=== PATIENT | female | born 1930 | race Caucasian/White ===

== ENCOUNTER 2017-02-14 18:15 | Inpatient (IN) | payer MEDICARE, BC ==
--- NOTE | 2017-02-14 18:49 | CT ---
CT BRAIN WITHOUT CONTRAST: 02/14/17 HISTORY: Left sided weakness and altered mental status. FINDINGS: There is a large area of decreased attenuation in the right MCA territory with mild mass effect on t he right lateral ventricles but no midline shift. No acute hemorrhage or abnormal extra-axial fluid collections are seen. The bilateral cisterns are patent. The bony calvarium is intact. IMPRESSION: Acute large right MCA infarction. Discussed over the telephone with ER physician, Dr. Kelechi Garcia at 6:40 p.m. POS: CYNTHIA
[2017-02-14 19:08] LABS: #Basophils 0.2 thou/uL (0.0-0.2); #Lymphocytes 0.4 thou/uL (1.20-3.40); #Monocytes 0.4 thou/uL (0.11-0.59); #Neutrophils 8.8 thou/uL (1.40-6.50); %Basophils 2.1 % (0.0-1.0); %Lymphocytes 3.8 % (21.0-51.0); Hematocrit 51.1 % (36.0-47.0); Mean Platelet Volume 7.6 fL (7.4-10.4); White Blood Cell (WBC) Count 9.7 thou/uL (4.8-10.8)
[2017-02-14 19:31] LABS: ALT (SGPT) 21 U/L (8-55); AST (SGOT) 31 U/L (5-34); Alkaline Phosphatase 55 U/L (40-150); Anion Gap 15 mmol/L (10-20); BUN (Urea Nitrogen) 20 mg/dL (9.8-20.1); Bilirubin, Total 1.8 mg/dL (0.2-1.2); Calc. Creatinine Clearance 0 mL/min (70-130); Calcium 9.8 mg/dL (7.8-10.44); Carbon Dioxide 27 mmol/L (23-31); Chloride 101 mmol/L (98-107); Estimated GFR-MDRD 61; Globulin 3.8 g/dL (2.4-3.5)
[2017-02-14 19:35] LABS: Troponin I 0.019 ng/mL (< 0.028)
[2017-02-14 20:17] LABS: Mode RA; Modified Allen's Test POSITIVE; Oxyhemoglobin 94.2 % (94.0-97.0); Sodium 139 mmol/L (135-148); Vent NO
[2017-02-14] MEDS ORDERED: Ondansetron HCl/PF 4 MG/2 ML Vial IVP PRN (22:38)
[2017-02-14] MEDS ORDERED: Ondansetron ODT 4 MG TAB SL PRN (22:38)
--- NOTE | 2017-02-14 23:29 | PDOC.EVN ---
Event Note - Event Note Event Note: [id number] h&P DICTATED 1. Acute CVA 2. HTN PLAN: SEE ORDERS
[2017-02-14 23:42] LABS: Bilirubin Negative (Negative); Blood, Urine Trace (Negative); Glucose, Urine (Dipstick) Negative (Negative); Ketone, Urine 15 mg/dL (Negative); Nitrite Negative (Negative); Protein, Urine (Dipstick) > or equal to 300 mg/dL (Neg-Trace); Urobilinogen 0.2 mg/dL (0.2-1.0)
[2017-02-14 23:53] LABS: Bacteria/HPF None Seen HPF (None Seen); Hyaline Casts/LPF 0-3 HYALINE CAST LPF (0-3 Hyaline); Squamous Epithelial 0-3 HPF (0-3); WBC/HPF 0-3 HPF (0-3)
[2017-02-15] MEDS ORDERED: Aspirin 300 MG Suppository PR SCH ×2 (00:15→09:00)
[2017-02-15] MEDS: Dextrose 5 %-0.45 % NaCl 1,000 ML IV SCH ×2 (00:22→05:55)
[2017-02-15] MEDS: Sodium Chloride 0.9% 1,000 ML IV SCH ×2 (00:25→17:41)
--- NOTE | 2017-02-15 08:05 | HP ---
DATE OF ADMISSION: 02/14/2017 CHIEF COMPLAINT: Unresponsive. HISTORY OF PRESENT ILLNESS: Patient is an 86-year-old female with past medical history of hypertension, atrial fibrillation, lives at home, was brought to the hospital because of lethargy and left-sided weakness. The patient was last seen normal yesterday evening around 3 to 4 p.m. Patient's caregiver went to check on the patient this morning. The patient did not open the door, so she went to check later in the afternoon and the patient would not open the door, so EMS went in to the house. Upon EMS arrival, the patient was lethargic, but arousable and with some dysarthria/aphasia. The patient has weakness on the left side, so patient was brought to the ER. Patient had a CT of the head done , which showed acute stroke, so the patient was admitted to the IMU. I could not able to get much history from the patient as the patient is lethargic, able to follow some commands, but appears lethargic. PAST MEDICAL HISTORY: As per HPI. PAST SURGICAL HISTORY: Hysterectomy. FAMILY HISTORY: Denies any heart problems. MEDICATIONS: Reviewed. SOCIAL HISTORY: No smoking, no alcohol, no drugs. REVIEW OF SYSTEMS: None available from the patient. Patient's family is at the bedside. PHYSICAL EXAMINATION: VITAL SIGNS: At the time of H and P performed, blood pressure is 145/73, heart rate 55, respiratory rate 18. GENERAL APPEARANCE: The patient appears tired, lethargic. HEENT: Pupils are sluggish to react. Tongue appears dry. Teeth, poor dentition. NECK: Supple, no JVD. CARDIOVASCULAR SYSTEM: S1 and S2 present, irregular, juan, no murmurs, no rubs , no gallops. RESPIRATORY SYSTEM: Diminished breath sounds present. No wheezing. No rhonchi. Poor respiratory effort. GASTROINTESTINAL: Abdomen is soft, nontender, no guarding, no organomegaly, no masses felt. MUSCULOSKELETAL: No edema. CRANIAL NERVE SYSTEM: Able to do hand grasp on the right upper extremity, no movement seen on the left upper and left lower extremity. Able to see tongue, positive for klwoszaj-at-rykovk aphasia. Positive for dysarthria also. PSYCHIATRIC: Mood lethargic. LABORATORY DATA: At the time of H and P performed, white count 9.7, hemoglobin 16.4, platelet count is 153,000. PH is 7.45, pCO2 of 37, pO2 is 81. BMP showed sodium 139, potassium 4.1, chloride 101, CO2 of 27, BUN of 20, creatinine 0.88, glucose 128, CK 433, CK-MB 14, troponin 0.019. EKG, positive atrial fibrillation. ASSESSMENT AND PLAN: The patient is an 86-year-old female: 1. Acute cerebrovascular accident. CT of the head positive for acute large right MCA distribution. Plan to consult PT, OT, speech therapy, and Neurology. Plan to monitor the patient closely. Plan to keep patient n.p.o. 2. Hypertension. We will keep blood pressure elevated. We will titrate unless blood pressure greater than 200 3. History of atrial fibrillation, hold anticoagulation. As patient is currently n.p.o., we will wait for Neuro input. We will consult Cardiology also for further recommendations as patient is on Eliquis and had stroke. Get further recommendations about switching to a different anticoagulation. The case was discussed in detail with the patient's son and nurse also. DAVID
[2017-02-15] MEDS ORDERED: Heparin 5,000 UNITS/ML VIAL SC SCH (09:00)
[2017-02-15] MEDS ORDERED: FLU VACC TS2017-18 (>65YR) 0.5 ML SYRINGE IM ONE (09:00)
--- NOTE | 2017-02-15 09:08 | ULT ---
ULTRASOUND CAROTID DOPPLER: History Altered mental status, left-sided weakness. COMPARISON: None. TECHNIQUE: Real-time, escoto scale, color Doppler, and spectral analysis of the bilateral extracranial carotid ar teries and vertebral arteries was performed. FINDINGS: No elevated peak systolic velocity to suggest hemodynamically significant stenosis. There is antegr franck flow within both vertebral arteries. Mild atherosclerotic plaque of common carotid arteries bilaterally. Right ICA/CCA ratio is 1.12 and on the left the ICA/CCA ratio is 0.73. IMPRESSION: No hemodynamically significant stenosis. POS: CYNTHIA
--- NOTE | 2017-02-15 15:35 | MRI ---
MRI BRAIN WITHOUT IV CONTRAST: Date: 02-15-17 History: Left sided weakness and altered mental status. Comparison: 02-14-17 FINDINGS: As noted on the recent CT scan examination, there is a large area of restricted diffusion in the rig ht middle cerebral artery distribution consistent with large right MCA distribution and acute infarc tion. This does result in mass effect on the cerebral sulci as well as mass effect on the anterior h orn as well as body of the right lateral ventricle. There is no hydrocephalus. There is an area of decreased signal intensity seen within the right basal ganglia as well as in the right jaeger radiata at the level of the right lateral ventricle suggesting areas of hemorrhagic tr ansformation of this area of infarction. There is approximately 3 mm of shift of the midline structu res from right to left. There is significant motion on provided multiple sequences which degrades image quality. Grossly appropriate flow voids are demonstrated at the base of the brain. However, there is slight d iminished attenuation seen within the distal aspect of the M1 segment of the right middle cerebral a rtery which could be related to slice selection or possibly related to partial thrombosis or sluggis h flow within the right middle cerebral artery. This cannot be further evaluated on this exam. There is evidence of prior lens replacement surgery. Paranasal sinuses and skull base have a normal appearance. IMPRESSION: 1. Large acute right MCA distribution infarction with areas of hemorrhagic transformation. 2. Mass effect right cerebral hemisphere as well as slight shift of the midline structures to the le ft measuring 3 mm. 3. Slight increased density involving the mid and distal portion of the M1 segment of the right midd le cerebral artery flow void which could be related to either sluggish flow or partial occlusion of the right middle cerebral artery. This cannot be further evaluated on this exam. Due to significant patient motion, MRA would probably be nondiagnostic. POS: CYNTHIA
--- NOTE | 2017-02-15 16:31 | PDOC.PN ---
- Subjective Encounter Start Date: 02/15/17 Encounter Start Time: 09:00 -: non-verbal Pt seen for followup re: ischemic cva. Pt nonverbal, unable to provide ROS. - Objective MAR Reviewed: Yes Vital Signs & Weight: Vital Signs (12 hours) Temp Pulse Resp BP BP BP Pulse Ox 02/15/17 15:53 98.8 F 60 16 156/53 H 94 L 02/15/17 11:17 98.8 F 59 L 16 133/71 98 02/15/17 09:00 150/62 H 135/65 02/15/17 08:00 99.2 F 83 18 100 02/15/17 07:35 99.2 F 83 18 140/85 94 L Pulse Ox Pulse Ox 02/15/17 15:53 02/15/17 11:17 02/15/17 09:00 97 98 02/15/17 08:00 02/15/17 07:35 Weight Admit Weight 126 lb 8 oz Weight 126 lb 8 oz I&O: 02/14/17 02/15/17 02/16/17 06:59 06:59 06:59 Intake Total 421 Output Total 320 Balance 101 Result Diagrams: 02/14/17 19:00 02/14/17 19:00 EKG Reviewed by me: Yes (Tele: aMonica dey with slow ventricular response) Phys Exam - Physical Examination Constitutional: NAD HEENT: moist MMs, oral pharynx no lesions Respiratory: no wheezing, no rales, no rhonchi, clear to auscultation bilateral Cardiovascular: no rub, irregular S1, S2, irrg, juan Gastrointestinal: soft, non-tender, no distention, positive bowel sounds Musculoskeletal: no edema, pulses present Power 0/5 LLE and LUE, 4+/5 RUE and RLE Psychiatric: normal affect Skin: no rash, normal turgor, cap refill <2 seconds Dx/Plan (1) Idiopathic ischemic cerebrovascular accident (CVA) in adult Code(s): I63.9 - CEREBRAL INFARCTION, UNSPECIFIED Status: Acute (2) Atrial fibrillation Code(s): I48.91 - UNSPECIFIED ATRIAL FIBRILLATION Status: Chronic (3) HTN (hypertension) Code(s): I10 - ESSENTIAL (PRIMARY) HYPERTENSION Status: Chronic (4) Hypothyroidism Code(s): E03.9 - HYPOTHYROIDISM, UNSPECIFIED Status: Chronic - Plan plan discussed w/ family, PT/OT, out of bed/ambulate * . Await 2D echo, carotid dopplers, MRI brain, neurology consult. Discussed with son, updated him. Continue synthroid when pt is able to take oral medications. Monitor vital signs and titrate antihypertensives as needed. Review of Systems - Medications/Allergies Allergies/Adverse Reactions: Allergies Allergy/AdvReac Type Severity Reaction Status Date / Time rosuvastatin calcium Allergy Verified 08/18/14 15:31 [From Crestor] Medications: Current Medications Aspirin (Aspirin) 300 mg [place] DAILY KARLENE Last Admin: 02/15/17 10:05 Dose: 300 mg Heparin Sodium (Porcine) (Heparin) 5,000 units SC Q12HR KARLENE Last Admin: 02/15/17 10:05 Dose: 5,000 units Sodium Chloride (Normal Saline 0.9%) 1,000 mls @ 75 mls/hr IV .[id number] [facility]ARLENE Last Admin: 02/15/17 00:25 Dose: 1,000 mls Levothyroxine Sodium (Synthroid) 25 mcg IVP 0600 [facility]
--- NOTE | 2017-02-15 17:14 | PDOC.EVN ---
Event Note - Event Note Event Note: MRI report noted. Discussed with family. Explanied to them concern re; hemorrhagic transfusion. Pt poor surgical candidate, per neurosurgery. If LOC declines, will try mannitol. Discussed code status. Both sons (only children, spouse ) are in agreement with DNR code status. Will consult palliative care. Prognosis poor. Stop heparin, aspirin.
[2017-02-16] MEDS: Sodium Chloride 0.9% 1,000 ML IV SCH (04:32)
--- NOTE | 2017-02-16 09:06 | CON ---
DATE OF CONSULTATION: 02/15/2017 REFERRING PROVIDER: Dr. Blake Gaitan. REASON FOR CONSULTATION: Left hemiparesis, dysarthria. HISTORY OF PRESENT ILLNESS: Ms. Velasquez is a pleasant 86-year-old female, who has been cons ulted for evaluation of the left-sided weakness and dysarthria. History is obtained from patient's sons, who were present at bedside. According to son, the patient has a history of atrial fibrillati on. She is on Eliquis for anticoagulation therapy. She had a tooth extraction procedure scheduled, for which Eliquis was held for 12 hours. She was last seen normal for more than 24 hours. Around 4:00 p.m., someone had gone to check on her, she did not respond, and as they were concerned, the po lice were called into to open the house and found her not able to move her left side and having a sl urred speech. Her being, last time, seen normal was 24 hours ago. PAST MEDICAL HISTORY: Significant for hypertension and atrial fibrillation. PAST SURGICAL HISTORY: Significant for hysterectomy and recent tooth extraction. FAMILY HISTORY: Noncontributory. CURRENT MEDICATIONS: Please review MAR. ALLERGIES: Included ROSUVASTATIN. REVIEW OF SYSTEMS: Unable to perform. PHYSICAL EXAMINATION: VITAL SIGNS: Blood pressure 157/82, pulse of 61, temperature of 99, respirations of 18, O2 sats of 98% on room air. GENERAL: A well-developed, well-nourished female resting in bed, in no apparent distress. RESPIRATORY: Clear to auscultation bilaterally. CARDIOVASCULAR: Regular rate and rhythm. NEUROLOGIC: Mental status: The patient is obtunded. She does wake up to verbal stimuli, but falls back asleep. Speech and language: Severely dysarthric speech. Cranial nerves: Pupils are 3 mm a nd reactive. There is a right gaze deviation with left hemineglect, left facial droop noted. Motor exam showed flaccid left upper and left lower extremity. She has a good hand information specialist on the right upp er extremity and she moves right upper and right lower extremities spontaneously. Sensory: She zayas s not withdraw to pain on the left upper and left lower extremity. Gait and Romberg coordination co uld not be tested. LABORATORY DATA: Labs are reviewed, which included CBC, CMP, lipid profile, and urinalysis, which i s significant for CK-MB of 14 and CPK of 433, otherwise unremarkable. IMAGING STUDIES: MRI brain without contrast was reviewed, which showed large right MCA distribution ischemic infarct with mild edema and right to left midline shift was 3 mm. IMPRESSION: 1. Large right middle cerebral artery distribution ischemic infarct. 2. Atrial fibrillation. 3. Left hemiparesis, due to #1. ASSESSMENT AND PLAN: Ms. Velasquez is a pleasant 86-year-old female who presented with an acu te onset of left hemiparesis and dysarthria. She is found to have large right middle cerebral arter y distribution ischemic infarct. I have discussed the findings of the MRI with her 2 sons. I have explained that the prognosis is poor. I have also explained that there is a risk for worsening cere bral edema over the next 48-72 hours. I have explained to them that due to the very large area of t he stroke, there is a concern that by placing her on any form of antiplatelet or anticoagulation the rapy it may increase the risk for bleeding and the current MRI already shows some hemorrhage within the stroke and thus we will be holding the anticoagulation therapy for now. I have spent more than 50% of the total visit time for discussion and counseling. Thank you for the consultation.
[2017-02-16] MEDS: Acetaminophen 325 MG TAB PO PRN (12:45)
--- NOTE | 2017-02-16 14:48 | PDOC.PN ---
- Subjective Encounter Start Date: 02/16/17 Encounter Start Time: 09:40 Pt seen for followup re: ischemic CVA. Answering questions appropriately. Denies chest pain, shortness of breath, fevers or chills. Reports R knee pain. - Objective Resuscitation Status: Resuscitation Status DNR:Do Not Resuscitate MAR Reviewed: Yes Vital Signs & Weight: Vital Signs (12 hours) Temp Pulse Pulse Pulse Pulse Pulse Resp 02/16/17 11:47 98.1 F 42 L 20 02/16/17 11:19 58 L 55 L 80 35 L 02/16/17 07:49 99.3 F 68 20 02/16/17 07:10 99.3 F 68 20 02/16/17 04:00 99.0 F 61 18 BP BP BP BP BP Pulse Ox Pulse Ox 02/16/17 11:47 155/68 H 95 02/16/17 11:19 142/90 H 145/77 H 145/78 H 155/68 H 100 02/16/17 07:49 99 02/16/17 07:10 116/87 100 02/16/17 04:00 157/92 H 98 Pulse Ox Pulse Ox Pulse Ox 02/16/17 11:47 02/16/17 11:19 100 100 100 02/16/17 07:49 02/16/17 07:10 02/16/17 04:00 Weight Admit Weight 126 lb 8 oz Weight 126 lb 8 oz I&O: 02/15/17 02/16/17 02/17/17 06:59 06:59 06:59 Intake Total 421 1525 Output Total 320 986 Balance 101 539 Result Diagrams: 02/14/17 19:00 02/14/17 19:00 EKG Reviewed by me: Yes (Tele: vishal dey) Phys Exam - Physical Examination Constitutional: NAD HEENT: moist MMs, oral pharynx no lesions Neck: supple Respiratory: no wheezing, no rales, no rhonchi, clear to auscultation bilateral Cardiovascular: no rub, irregular S1, S2, irreg, juan Gastrointestinal: soft, non-tender, no distention, positive bowel sounds Musculoskeletal: pulses present Power 0/0 LUE and LLE, 5/5 RUE and RLE; L tavia-neglect Psychiatric: normal affect Skin: no rash, normal turgor, cap refill <2 seconds Dx/Plan (1) Idiopathic ischemic cerebrovascular accident (CVA) in adult Code(s): I63.9 - CEREBRAL INFARCTION, UNSPECIFIED Status: Acute (2) Atrial fibrillation Code(s): I48.91 - UNSPECIFIED ATRIAL FIBRILLATION Status: Chronic (3) HTN (hypertension) Code(s): I10 - ESSENTIAL (PRIMARY) HYPERTENSION Status: Chronic (4) Hypothyroidism Code(s): E03.9 - HYPOTHYROIDISM, UNSPECIFIED Status: Chronic - Plan plan discussed w/ family, PT/OT, speech therapy, DVT proph w/SCDs * . Appreciate neurology input. Awaiting palliative care consult. No aspirin due to hemorrhagic transformation. Review of Systems - Review of Systems Constitutional: Weakness. negative: Fever, Chills, Sweats, Malaise Cardiovascular: negative: Chest Pain, Palpitations, Orthopnea, Paroxysmal Noc. Dyspnea, Edema, Light Headedness Gastrointestinal: negative: Nausea, Vomiting, Abdominal Pain, Diarrhea, Constipation, Melena, Hematochezia Skin: negative: Rash, Lesions, Mohamud, Bruising Neurological: Weakness, Change in Speech. negative: Numbness, Incoordination, Confusion, Seizures - Medications/Allergies Allergies/Adverse Reactions: Allergies Allergy/AdvReac Type Severity Reaction Status Date / Time rosuvastatin calcium Allergy Verified 08/18/14 15:31 [From Crestor] Medications: Current Medications Acetaminophen (Tylenol) 650 mg PO Q6H PRN PRN Reason: Headache/Fever or Pain Last Admin: 02/16/17 12:45 Dose: 650 mg Sodium Chloride (Normal Saline 0.9%) 1,000 mls @ 75 mls/hr IV .[id number] KARLENE Last Admin: 02/16/17 04:32 Dose: 1,000 mls Levothyroxine Sodium (Synthroid) 25 mcg IVP 0600 [facility]
[2017-02-17] MEDS: Sodium Chloride 0.9% 1,000 ML IV SCH ×2 (00:33→14:20)
[2017-02-17] MEDS: hydrALAZINE 20 MG/ML VIAL SLOW IVP PRN ×2 (00:33→16:44)
[2017-02-17] MEDS: Acetaminophen 325 MG TAB PO PRN (05:18)
--- NOTE | 2017-02-17 11:13 | PDOC.PN ---
- Subjective Encounter Start Date: 02/17/17 Encounter Start Time: 07:00 Pt seen for followup re: ischemic CVA. Able to speak, denies chest pain, shortness of breath, fevers or chills. - Objective Resuscitation Status: Resuscitation Status DNR:Do Not Resuscitate MAR Reviewed: Yes Vital Signs & Weight: Vital Signs (12 hours) Temp Pulse Resp BP BP Pulse Ox 02/17/17 08:00 97.2 F L 49 L 18 161/79 H 98 02/17/17 03:40 98.7 F 71 16 139/50 L 98 02/17/17 02:02 140/52 L 02/17/17 00:33 67 203/84 H 02/16/17 23:15 97.8 F 62 16 200/90 H 92 L Weight Admit Weight 126 lb 8 oz Weight 126 lb 8 oz I&O: 02/16/17 02/17/17 02/18/17 06:59 06:59 06:59 Intake Total 1525 1020 Output Total 986 4450 Balance 539 -3430 Result Diagrams: 02/14/17 19:00 02/14/17 19:00 EKG Reviewed by me: Yes (Tele: vishal dey) Phys Exam - Physical Examination Constitutional: NAD HEENT: moist MMs Neck: supple Respiratory: clear to auscultation bilateral Cardiovascular: irregular Gastrointestinal: soft, non-tender Musculoskeletal: pulses present L hemiplegia, L hemineglet Psychiatric: normal affect Skin: no rash Dx/Plan (1) Idiopathic ischemic cerebrovascular accident (CVA) in adult Code(s): I63.9 - CEREBRAL INFARCTION, UNSPECIFIED Status: Acute Comment: with hemorrhagic transformation (2) Atrial fibrillation Code(s): I48.91 - UNSPECIFIED ATRIAL FIBRILLATION Status: Chronic (3) HTN (hypertension) Code(s): I10 - ESSENTIAL (PRIMARY) HYPERTENSION Status: Chronic (4) Hypothyroidism Code(s): E03.9 - HYPOTHYROIDISM, UNSPECIFIED Status: Chronic - Plan plan discussed w/ family, PT/OT, speech therapy, DVT proph w/SCDs * . Working with therapy services. Needs discharge planning. No aspirin due to hemorrhagic transformation. Review of Systems - Review of Systems Constitutional: negative: Fever, Chills, Sweats, Weakness, Malaise Respiratory: negative: Cough, Dry, Shortness of Breath, Hemoptysis, SOB with Excertion, Pleuritic Pain, Sputum, Wheezing Cardiovascular: negative: Chest Pain, Palpitations, Orthopnea, Paroxysmal Noc. Dyspnea, Edema, Light Headedness - Medications/Allergies Allergies/Adverse Reactions: Allergies Allergy/AdvReac Type Severity Reaction Status Date / Time rosuvastatin calcium Allergy Verified 08/18/14 15:31 [From Crestor] Medications: Current Medications Acetaminophen (Tylenol) 650 mg PO Q6H PRN PRN Reason: Headache/Fever or Pain Last Admin: 02/17/17 05:18 Dose: 650 mg Hydralazine HCl (Apresoline) 5 mg SLOW IVP Q4H PRN PRN Reason: SBP GREATER THAN 160 Last Admin: 02/17/17 00:33 Dose: 5 mg Sodium Chloride (Normal Saline 0.9%) 1,000 mls @ 75 mls/hr IV .[id number] [facility]ARLENE Last Admin: 02/17/17 00:33 Dose: 1,000 mls Levothyroxine Sodium (Synthroid) 25 mcg IVP 0600 [facility] Sodium Chloride (Flush - Normal Saline) 10 ml IVF Q12HR KARLENE Last Admin: 02/17/17 07:24 Dose: Not Given Sodium Chloride (Flush - Normal Saline) 10 ml IVF PRN PRN PRN Reason: Saline Flush
[2017-02-18] MEDS: Acetaminophen 325 MG TAB PO PRN (00:23)
[2017-02-18] MEDS ORDERED: Levothyroxine Sodium 200 MCG VIAL IVP SCH (06:00)
[2017-02-18] MEDS ORDERED: Levothyroxine Sodium 100 MCG VIAL IVP SCH (06:00)
[2017-02-18] MEDS: Sodium Chloride 0.9% 1,000 ML IV SCH (09:10)
[2017-02-18] MEDS: Hydrochlorothiazide 25 MG TAB PO SCH (09:10)
--- NOTE | 2017-02-18 10:55 | PDOC.PN ---
- Subjective Encounter Start Date: 02/18/17 Encounter Start Time: 07:20 Pt seen for followup re: constipation. Sleepy but arousable, denies chest pain , shortness of breath or fevers. - Objective Resuscitation Status: Resuscitation Status DNR:Do Not Resuscitate MAR Reviewed: Yes Vital Signs & Weight: Vital Signs (12 hours) Temp Pulse Resp BP Pulse Ox 02/18/17 08:00 98.7 F 49 L 18 02/18/17 07:34 98.7 F 49 L 18 138/77 96 02/18/17 03:34 97.8 F 47 L 18 152/74 H 97 02/18/17 00:08 97.7 F 65 20 152/74 H 96 Weight Admit Weight 126 lb 8 oz Weight 129 lb 9.6 oz I&O: 02/17/17 02/18/17 02/19/17 06:59 06:59 06:59 Intake Total 1020 2114 120 Output Total 4450 Balance -3430 2114 120 Result Diagrams: 02/14/17 19:00 02/14/17 19:00 EKG Reviewed by me: Yes (Tele: vishal dey) Phys Exam - Physical Examination Constitutional: NAD HEENT: moist MMs Neck: supple Respiratory: clear to auscultation bilateral Cardiovascular: irregular Gastrointestinal: soft, non-tender Musculoskeletal: pulses present L hemiplegia, hemineglect Psychiatric: normal affect Skin: no rash Dx/Plan (1) Constipation Code(s): K59.00 - CONSTIPATION, UNSPECIFIED Status: Acute (2) Idiopathic ischemic cerebrovascular accident (CVA) in adult Code(s): I63.9 - CEREBRAL INFARCTION, UNSPECIFIED Status: Acute Comment: with hemorrhagic transformation (3) Atrial fibrillation Code(s): I48.91 - UNSPECIFIED ATRIAL FIBRILLATION Status: Chronic (4) HTN (hypertension) Code(s): I10 - ESSENTIAL (PRIMARY) HYPERTENSION Status: Chronic (5) Hypothyroidism Code(s): E03.9 - HYPOTHYROIDISM, UNSPECIFIED Status: Chronic - Plan PT/OT, out of bed/ambulate, DVT proph w/SCDs * . Start laxatives, stool softeners. No aspirin due to hemorrhagic transformation of stroke. Titrate antihypertensives PRN. Needs discharge planning. Review of Systems - Review of Systems Constitutional: negative: Fever, Chills, Sweats, Weakness, Malaise Respiratory: negative: Cough, Dry, Shortness of Breath, Hemoptysis, SOB with Excertion, Pleuritic Pain, Sputum, Wheezing Cardiovascular: negative: Chest Pain, Palpitations, Orthopnea, Paroxysmal Noc. Dyspnea, Edema, Light Headedness Gastrointestinal: Constipation Neurological: Weakness - Medications/Allergies Allergies/Adverse Reactions: Allergies Allergy/AdvReac Type Severity Reaction Status Date / Time rosuvastatin calcium Allergy Verified 08/18/14 15:31 [From Cresthi] Medications: Current Medications Acetaminophen (Tylenol) 650 mg PO Q6H PRN PRN Reason: Headache/Fever or Pain Last Admin: 02/18/17 00:23 Dose: 650 mg Hydralazine HCl (Apresoline) 5 mg SLOW IVP Q4H PRN PRN Reason: SBP GREATER THAN 160 Last Admin: 02/17/17 16:44 Dose: 5 mg Hydrochlorothiazide (Hydrochlorothiazide) 12.5 mg PO DAILY [facility] Last Admin: 02/18/17 09:10 Dose: 12.5 mg Sodium Chloride (Normal Saline 0.9%) 1,000 mls @ 75 mls/hr IV .[id number] [facility] Last Admin: 02/18/17 09:10 Dose: 1,000 mls Levothyroxine Sodium (Synthroid) 50 mcg PO 0600 [facility] Metoprolol Succinate (Toprol Xl) 50 mg PO DAILY [facility] Last Admin: 02/18/17 09:07 Dose: Not Given Olmesartan (Benicar) 20 mg PO DAILY [facility] Last Admin: 02/18/17 09:10 Dose: 20 mg Sodium Chloride (Flush - Normal Saline) 10 ml IVF Q12HR [facility] Last Admin: 02/18/17 09:07 Dose: Not Given Sodium Chloride (Flush - Normal Saline) 10 ml IVF PRN PRN PRN Reason: Saline Flush
[2017-02-18] MEDS ORDERED: Bisacodyl 5 MG TAB PO SCH (11:00)
[2017-02-18] MEDS ORDERED: Bisacodyl 5 MG TAB PO PRN (11:00)
[2017-02-18] MEDS: hydrALAZINE 20 MG/ML VIAL SLOW IVP PRN (16:24)
[2017-02-18] MEDS: Docusate 100 MG CAP PO SCH (21:01)
[2017-02-19] MEDS: hydrALAZINE 20 MG/ML VIAL SLOW IVP PRN (00:27)
[2017-02-19] MEDS: Sodium Chloride 0.9% 1,000 ML IV SCH ×2 (01:53→13:36)
[2017-02-19] MEDS: Levothyroxine Sodium 50 MCG TAB PO SCH (05:43)
[2017-02-19] MEDS: Docusate 100 MG CAP PO SCH ×2 (09:08→20:59)
[2017-02-19] MEDS: Hydrochlorothiazide 25 MG TAB PO SCH (09:08)
--- NOTE | 2017-02-19 09:23 | PDOC.PN ---
- Subjective Encounter Start Date: 02/19/17 Encounter Start Time: 07:00 Pt seen for followup re; ischemic cva. Answering questions, denies chest pain, shortness of breath, fevers or chills. - Objective Resuscitation Status: Resuscitation Status DNR:Do Not Resuscitate MAR Reviewed: Yes Vital Signs & Weight: Vital Signs (12 hours) Temp Pulse Resp BP Pulse Ox 02/19/17 07:34 97.6 F 52 L 20 156/74 H 99 02/19/17 04:00 98.1 F 71 14 141/78 H 96 02/19/17 00:27 63 02/19/17 00:05 189/81 H 02/18/17 23:47 98.6 F 63 14 189/81 H 94 L Weight Admit Weight 126 lb 8 oz Weight 129 lb 9.6 oz I&O: 02/18/17 02/19/17 02/20/17 06:59 06:59 06:59 Intake Total 2114 1700 Balance 2114 1700 Result Diagrams: 02/14/17 19:00 02/14/17 19:00 EKG Reviewed by me: Yes (Tele: vishal dey) Phys Exam - Physical Examination Constitutional: NAD HEENT: moist MMs Neck: supple Respiratory: clear to auscultation bilateral Cardiovascular: irregular Gastrointestinal: soft Musculoskeletal: pulses present L hemiplegia Psychiatric: normal affect Skin: no rash Dx/Plan (1) 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 No anticoagulation due to hemorrhagic transformation of stroke. Review of Systems - Review of Systems Constitutional: negative: Fever, Chills, Sweats, Weakness, Malaise Respiratory: negative: Cough, Dry, Shortness of Breath, Hemoptysis, SOB with Excertion, Pleuritic Pain, Sputum, Wheezing Cardiovascular: negative: Chest Pain, Palpitations, Orthopnea, Paroxysmal Noc. Dyspnea, Edema, Light Headedness - Medications/Allergies Allergies/Adverse Reactions: Allergies Allergy/AdvReac Type Severity Reaction Status Date / Time rosuvastatin calcium Allergy Verified 08/18/14 15:31 [From Crestor] Medications: Current Medications Acetaminophen (Tylenol) 650 mg PO Q6H PRN PRN Reason: Headache/Fever or Pain Last Admin: 02/18/17 00:23 Dose: 650 mg Bisacodyl (Dulcolax) 10 mg PO DAILYPRN PRN PRN Reason: Constipation Docusate Sodium (Colace) 100 mg PO BID [facility] Last Admin: 02/19/17 09:08 Dose: 100 mg Hydralazine HCl (Apresoline) 5 mg SLOW IVP Q4H PRN PRN Reason: SBP GREATER THAN 160 Last Admin: 02/19/17 00:27 Dose: 5 mg Hydrochlorothiazide (Hydrochlorothiazide) 12.5 mg PO DAILY [facility] Last Admin: 02/19/17 09:08 Dose: 12.5 mg Sodium Chloride (Normal Saline 0.9%) 1,000 mls @ 75 mls/hr IV .[id number] [facility] Last Admin: 02/19/17 01:53 Dose: 1,000 mls Levothyroxine Sodium (Synthroid) 50 mcg PO 0600 [facility] Last Admin: 02/19/17 05:43 Dose: 50 mcg Metoprolol Succinate (Toprol Xl) 50 mg PO DAILY [facility] Last Admin: 02/19/17 09:08 Dose: 50 mg Olmesartan (Benicar) 20 mg PO DAILY [facility] Last Admin: 02/19/17 09:08 Dose: 20 mg Sodium Chloride (Flush - Normal Saline) 10 ml IVF Q12HR [facility] Last Admin: 02/19/17 09:08 Dose: Not Given Sodium Chloride (Flush - Normal Saline) 10 ml IVF PRN PRN PRN Reason: Saline Flush
[2017-02-20] MEDS: Sodium Chloride 0.9% 1,000 ML IV SCH (03:12)
[2017-02-20] MEDS: Levothyroxine Sodium 50 MCG TAB PO SCH (05:05)
[2017-02-20] MEDS: Hydrochlorothiazide 25 MG TAB PO SCH (09:02)
[2017-02-20] MEDS: Docusate 100 MG CAP PO SCH ×2 (09:02→20:32)
--- NOTE | 2017-02-20 09:24 | PDOC.PN ---
- Subjective Encounter Start Date: 02/20/17 Encounter Start Time: 07:00 Pt seen for followup re: ischemic CVA. Says she feels well. Denies chest pain , shortness of breath. - Objective Resuscitation Status: Resuscitation Status DNR:Do Not Resuscitate MAR Reviewed: Yes Vital Signs & Weight: Vital Signs (12 hours) Temp Pulse Resp BP Pulse Ox 02/20/17 07:39 97.7 F 43 L 18 156/84 H 95 02/20/17 03:58 97.7 F 45 L 16 154/72 H 94 L 02/19/17 23:07 98.6 F 56 L 16 164/75 H 96 Weight Admit Weight 126 lb 8 oz Weight 129 lb 9.6 oz I&O: 02/19/17 02/20/17 02/21/17 06:59 06:59 06:59 Intake Total 1700 936 Balance 1700 936 Result Diagrams: 02/14/17 19:00 02/14/17 19:00 EKG Reviewed by me: Yes (Tele: vishal dey) Phys Exam - Physical Examination Constitutional: NAD HEENT: moist MMs Neck: supple Respiratory: clear to auscultation bilateral Cardiovascular: irregular Gastrointestinal: soft Musculoskeletal: pulses present L hemiplegia Psychiatric: normal affect Dx/Plan (1) 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 Pt awaiting decision re: rehab eval. Continue PT, OT. No aspirin or anticoagulation due to hemorrhagic transformation. Review of Systems - Review of Systems Constitutional: negative: Fever, Chills, Sweats, Weakness, Malaise Respiratory: negative: Cough, Dry, Shortness of Breath, Hemoptysis, SOB with Excertion, Pleuritic Pain, Sputum, Wheezing Cardiovascular: negative: Chest Pain, Palpitations, Orthopnea, Paroxysmal Noc. Dyspnea, Edema, Light Headedness - Medications/Allergies Allergies/Adverse Reactions: Allergies Allergy/AdvReac Type Severity Reaction Status Date / Time rosuvastatin calcium Allergy Verified 08/18/14 15:31 [From Crestor] Medications: Current Medications Acetaminophen (Tylenol) 650 mg PO Q6H PRN PRN Reason: Headache/Fever or Pain Last Admin: 02/18/17 00:23 Dose: 650 mg Bisacodyl (Dulcolax) 10 mg PO DAILYPRN PRN PRN Reason: Constipation Docusate Sodium (Colace) 100 mg PO BID [facility] Last Admin: 02/20/17 09:02 Dose: 100 mg Hydralazine HCl (Apresoline) 5 mg SLOW IVP Q4H PRN PRN Reason: SBP GREATER THAN 160 Last Admin: 02/19/17 00:27 Dose: 5 mg Hydrochlorothiazide (Hydrochlorothiazide) 12.5 mg PO DAILY [facility] Last Admin: 02/20/17 09:02 Dose: 12.5 mg Sodium Chloride (Normal Saline 0.9%) 1,000 mls @ 75 mls/hr IV .[id number] [facility] Last Admin: 02/20/17 03:12 Dose: 1,000 mls Levothyroxine Sodium (Synthroid) 50 mcg PO 0600 [facility] Last Admin: 02/20/17 05:05 Dose: 50 mcg Metoprolol Succinate (Toprol Xl) 50 mg PO DAILY [facility] Last Admin: 02/20/17 09:15 Dose: Not Given Olmesartan (Benicar) 20 mg PO DAILY [facility] Last Admin: 02/20/17 09:02 Dose: 20 mg Sodium Chloride (Flush - Normal Saline) 10 ml IVF Q12HR [facility] Last Admin: 02/20/17 09:13 Dose: Not Given Sodium Chloride (Flush - Normal Saline) 10 ml IVF PRN PRN PRN Reason: Saline Flush
--- NOTE | 2017-02-20 19:09 | PDOC.EVN ---
Event Note - Event Note Event Note: Obtained CT brain to r/o bleed to decide re: resuming anticoagulation. D/W radiologist, worsening edema. D/w neurology and neurosurgical services. Will not restart anticoagulation. Neurosurgery saervice will assess pt. d/w son, updated him.
--- NOTE | 2017-02-20 20:18 | CT ---
CT OF HEAD: Clinical history: Intracranial bleed. Comparison: Head CT 02-14-17, brain MRI 02-15-17. FINDINGS: There has been expected interval temporal evolution of previously described large right MCA distribu tion infarction with areas of hemorrhagic transformation. Hemorrhagic is predominately located at th e [place] confines of the right basal ganglia region. A large region of late subacute infarction with associated edema now occupies the majority of the right MCA territory with associated mass effect a nd midline shift, approximately 7 mm at the level of the septum pellucidum. There is associated vent ricular effacement. Sulcal effacement of the right cerebral hemisphere also demonstrated. IMPRESSION: Interval temporal evolution of large right MCA distribution infarction with hemorrhage transformatio n again noted with hemorrhage located within the confines of the right basil ganglia. Large region o f edema associated with subacute infarction occupying the right MCA territory results in mass effect and leftward midline shift. Given the degree of mass effect, recommend neurosurgical consultation. These findings telephoned to patient's ordering physician, Jem Richards, at time of interpretation, 1 859 hours 02-20-17. POS: [facility]
[2017-02-20] MEDS: hydrALAZINE 25 MG TAB PO SCH (20:32)
--- NOTE | 2017-02-20 20:44 | PRG ---
DATE OF SERVICE: 02/20/2017 SUBJECTIVE: Ms. Velasquez is an 86-year-old female with history of atrial fibrillation, prese nted with a large right MCA distribution ischemic infarct. The patient's son was at bedside who rep orts that there is some improvement in her neurological exam over the past 48 hours. She has been m ore alert and oriented. She has been able to swallow and able to follow commands appropriately. Sh e continues to be weak on her left side. PHYSICAL EXAMINATION: VITAL SIGNS: Blood pressure of 165/86, pulse of 68, temperature of 97.9, respirations are 20, and O 2 sats of 95% on room air. GENERAL: Lethargic appearing female resting in bed in no apparent distress. RESPIRATORY: Clear to auscultation bilaterally. CARDIOVASCULAR: Regular rate and rhythm. NEUROLOGICAL: Mental status: The patient is awake, alert, somewhat lethargic, but oriented to pers on and place. She is able to follow simple commands. Cranial nerves: Pupils are 3 mm and reactive . She has a right gaze preference with the left hemineglect. There is a left facial droop noted. Motor exam showed flaccid left upper and left lower extremity with 0/5 strength in the left upper an d left lower extremity. Strength in the right upper and right lower extremity is 5/5. IMAGING STUDIES: CT head without contrast done today was reviewed, which showed large right MCA dis tribution ischemic infarct with mild hemorrhagic conversion into the right basal ganglia with mild m idline shift. IMPRESSION: 1. Large right middle cerebral artery distribution with ischemic infarct. 2. Left hemiparesis, due to large right middle cerebral artery distribution with ischemic infarct. 3. Dysarthria, large right middle cerebral artery distribution with ischemic infarct. 4. Hypertension. 5. Atrial fibrillation. Ms. Velasquez is a pleasant 86-year-old female who presented with acute onset of left hemipare sis and dysarthria. She is found to have large right MCA distribution ischemic infarct. Her exam i s actually better today than I had seen on last Monday, even though her CAT scan does look little bi t worse, but this was to be expected. Her overall clinical neurological exam is actually better anna n it was on Monday, so thus I would expect better recovery. I would recommend keeping in the hospit al for 1-2 days, repeat the CT scan of the head on Wednesday morning and there is no worsening of th e edema or hemorrhage. The patient is okay to be discharged to rehabilitation. I would reassess st stoll recommended against using any form of anticoagulation therapy as it will increase the risk of bleeding. I will also hold off on aspirin or Plavix for now until we repeat the CT head on , at which time I will decide whether she needs to be on aspirin for secondary stroke prev ention. I will see the patient in my clinic in 6 weeks post-discharge.
--- NOTE | 2017-02-21 01:44 | DIS ---
DATE OF ADMISSION: 02/14/2017 DATE OF DISCHARGE: 02/20/2017 PRIMARY CARE PHYSICIAN: Dr. Marito Pisano at [facility]. DISCHARGE DIAGNOSES: 1. Ischemic cerebrovascular accident. 2. 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 3. A 2D echocardiogram on 02/15/2017, showing atrial fibrillation, ejection fraction of 50% to 55%, normal right ventricular size and function, mild to moderate regurgitation, mitral regurgitation, m ild aortic regurgitation, mild tricuspid regurgitation and mild pulmonic regurgitation. CONDITION OF PATIENT AT THE TIME OF DISCHARGE: Stable. I assessed Ms. Velasquez on the day of discharg e. Please refer to my daily progress note for further information on this [id number] encounter. DISCHARGE MEDICATIONS: Hydrochlorothiazide 12.5 mg daily, levothyroxine 50 mcg daily, hydralazine 2 5 mg 4 times a day, olmesartan 20 mg daily. HOSPITAL COURSE: Ms. Velasquez is a pleasant 86-year-old lady who was admitted to [facility] for left-sided hemiplegia on 02/14/2017. CT scan of the brain on 02/14/2017 showed acu te large right MCA infarction. MRI of the brain on 02/15/2017 showed large right acute MCA distribu tion infarction with areas of hemorrhagic transformation, mass effect of the right cerebral hemisphe re as well as a slight shift of the midline structures to the left. She had carotid Dopplers on , which did not show any hemodynamically significant stenosis. She also had a 2D echocardiog ramon, with results as described above. She was seen by Neurology Service, Dr. Bel Daley. She was n ot started on aspirin because of the hemorrhagic transformation. Her Eliquis was also stopped becau se of hemorrhagic transformation. These will need to be reassessed by primary care provider. She was also seen by Palliative Care Service. She was seen by Therapy Services. She has been accep sebastian for inpatient rehabilitation at [facility], and is being discharged to [facility]. Many thanks for allowing me to participate in your patient's care. Please feel free to contact me w ith any questions or concerns. Because of her allergy to STATINS, she was not started on statins. Her lipid profile during this ho spitalization showed triglycerides 41, cholesterol 137, LDL cholesterol 76 and HDL cholesterol 53. DISCHARGE DESTINATION: [facility] Inpatient Rehabilitation. TOTAL AMOUNT OF TIME SPENT COORDINATING THIS DISCHARGE: Thirty-Two minutes.
[2017-02-21] MEDS: Levothyroxine Sodium 50 MCG TAB PO SCH (05:43)
[2017-02-21] MEDS: hydrALAZINE 25 MG TAB PO SCH (09:07)
[2017-02-21] MEDS: Docusate 100 MG CAP PO SCH ×2 (09:07→20:32)
[2017-02-21] MEDS: Hydrochlorothiazide 25 MG TAB PO SCH (09:08)
--- NOTE | 2017-02-21 10:27 | PDOC.PN ---
- Subjective Encounter Start Date: 02/21/17 Encounter Start Time: 07:00 Pt seen for followup re: ischemic CVA. Denies chest pain, denies weakness, denies diarrhea. - Objective Resuscitation Status: Resuscitation Status DNR:Do Not Resuscitate MAR Reviewed: Yes Vital Signs & Weight: Vital Signs (12 hours) Temp Pulse Resp BP BP Pulse Ox 02/21/17 09:07 54 L 130/80 02/21/17 08:00 97.1 F L 60 16 02/21/17 07:35 97.1 F L 60 16 130/80 96 02/21/17 03:49 98.6 F 56 L 16 162/81 H 94 L 02/20/17 23:44 98.9 F 61 18 147/72 H 94 L Weight Admit Weight 126 lb 8 oz Weight 129 lb 9.6 oz I&O: 02/20/17 02/21/17 02/22/17 06:59 06:59 06:59 Intake Total 936 1326 Balance 936 1326 Result Diagrams: 02/14/17 19:00 02/14/17 19:00 EKG Reviewed by me: Yes (Tele: vishal dey) Phys Exam - Physical Examination Constitutional: NAD HEENT: moist MMs Neck: full ROM Respiratory: no wheezing, no rales, no rhonchi, clear to auscultation bilateral Cardiovascular: irregular Gastrointestinal: soft, positive bowel sounds L hemiplegia Psychiatric: normal affect Skin: no rash Dx/Plan (1) 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 Plan is to rtepeat CT brain tomorrow. If bleed has not changed, plan to start ASA 81 mg (NO other anticoagulation) and observe. Pt has been accepted for Inpt Rehab, but the discharge was held due to abnormal CT scan yesterday. Pt has not been receiving beta monica due to bradycardia, start amlodipine, observe. Review of Systems - Review of Systems Constitutional: negative: Fever, Chills, Sweats, Weakness Respiratory: negative: Cough, Shortness of Breath Cardiovascular: negative: Chest Pain, Palpitations Gastrointestinal: negative: Nausea, Diarrhea - Medications/Allergies Allergies/Adverse Reactions: Allergies Allergy/AdvReac Type Severity Reaction Status Date / Time rosuvastatin calcium Allergy Verified 08/18/14 15:31 [From Crestor] Medications: Current Medications Acetaminophen (Tylenol) 650 mg PO Q6H PRN PRN Reason: Headache/Fever or Pain Last Admin: 02/18/17 00:23 Dose: 650 mg Bisacodyl (Dulcolax) 10 mg PO DAILYPRN PRN PRN Reason: Constipation Last Admin: 02/21/17 09:10 Dose: 10 mg Docusate Sodium (Colace) 100 mg PO BID [facility] Last Admin: 02/21/17 09:07 Dose: 100 mg Hydralazine HCl (Apresoline) 5 mg SLOW IVP Q4H PRN PRN Reason: SBP GREATER THAN 160 Last Admin: 02/19/17 00:27 Dose: 5 mg Hydralazine HCl (Apresoline) 25 mg PO QID [facility] Last Admin: 02/21/17 09:07 Dose: 25 mg Hydrochlorothiazide (Hydrochlorothiazide) 12.5 mg PO DAILY [facility] Last Admin: 02/21/17 09:08 Dose: 12.5 mg Levothyroxine Sodium (Synthroid) 50 mcg PO 0600 [facility] Last Admin: 02/21/17 05:43 Dose: 50 mcg Metoprolol Succinate (Toprol Xl) 50 mg PO DAILY [facility] Last Admin: 02/21/17 10:10 Dose: Not Given Olmesartan (Benicar) 20 mg PO DAILY [facility] Last Admin: 02/21/17 09:07 Dose: 20 mg Sodium Chloride (Flush - Normal Saline) 10 ml IVF Q12HR [facility] Last Admin: 02/21/17 09:14 Dose: Not Given Sodium Chloride (Flush - Normal Saline) 10 ml IVF PRN PRN PRN Reason: Saline Flush
[2017-02-21] MEDS ORDERED: Amlodipine 5 MG TAB PO SCH (10:30)
--- NOTE | 2017-02-21 21:49 | CON ---
DATE OF CONSULTATION: 02/21/2017 HISTORY OF PRESENT ILLNESS: Ms. Velasquez is an 86-year-old woman who suffered a right MCA stroke that was getting ready to be discharged to inpatient rehabilitation at which point a CT scan was performe d of the brain which showed hemorrhagic conversion in part of her stroke distribution as well as inc rease in her vasogenic edema and therefore increase in her midline shift; however, this did not resu lt in any clinical change. In any case, Neurosurgery was consulted for the increase in midline shif t. PHYSICAL EXAMINATION: GENERAL: At that time, the patient is alert and oriented x3. She is a little drowsy, but awakens w ith ease. HEENT: Pupils are equally round and reactive to light. EXTREMITIES: She is left hemiparetic, but has good motor strength in the right upper and lower extr emities. From a neurosurgical standpoint, there is no need for any additional intervention, but I would not p ut her on any anticoagulant therapy given the hemorrhagic conversion, I believe that at any point sh jad will be safe for discharge butperhaps another 24 hours at least to make sure that there is no furt her decline.
[2017-02-22] MEDS: Levothyroxine Sodium 50 MCG TAB PO SCH (05:15)
[2017-02-22] MEDS ORDERED: Amlodipine 5 MG TAB PO SCH (09:00)
--- NOTE | 2017-02-22 09:39 | CT ---
NONCONTRAST HEAD CT: History: Follow up intracranial hemorrhage. Comparison: 02-20-17 Technique: Noncontrast head CT is performed from skull base to skull vertex. FINDINGS: Limited evaluation due to motion degradation. There is expected progression of the large right MCA d istribution infarct. Hemorrhagic conversion is redemonstrated. The degree of hemorrhage does not mohamud ear to have significantly changed, currently measuring 2.8 x 1.5 cm. There is mass effect with effac ement of the right lateral ventricle. Left cerebral cortical escoto-white matter differentiation is pr eserved. Basilar cisterns are patent. Calvarium is intact. There is right to left subfalcine herniation measuring 0.7 cm. IMPRESSION: 1. Expected progression of right MCA distribution infarction. 2. Stable hemorrhagic transformation right basal ganglion. 3. Effacement of the ventricular system. 4. Re-demonstration of right to left subfalcine herniation. POS: [facility]
[2017-02-22] MEDS: Hydrochlorothiazide 25 MG TAB PO SCH (09:46)
[2017-02-22] MEDS: Docusate 100 MG CAP PO SCH (09:46)
[2017-02-22 11:34] VITALS: TEMP 98.6
--- NOTE | 2017-02-22 12:24 | PDOC.PN ---
- Subjective Encounter Start Date: 02/22/17 Encounter Start Time: 12:22 Ms. Velasquez does not have any complaints. - Objective Resuscitation Status: Resuscitation Status DNR:Do Not Resuscitate MAR Reviewed: Yes Vital Signs & Weight: Vital Signs (12 hours) Temp Pulse Pulse Resp BP BP Pulse Ox 02/22/17 11:25 98.6 F 61 18 101/61 93 L 02/22/17 09:46 53 L 02/22/17 08:36 68 136/78 02/22/17 08:03 97.6 F 53 L 18 94 L 02/22/17 08:00 97.6 F 53 L 18 146/98 H 94 L 02/22/17 04:23 97.6 F 72 16 136/92 H 96 Weight Admit Weight 126 lb 8 oz Weight 129 lb 9.6 oz I&O: 02/21/17 02/22/17 02/23/17 06:59 06:59 06:59 Intake Total 1326 660 400 Balance 1326 660 400 Result Diagrams: 02/14/17 19:00 02/14/17 19:00 Phys Exam - Physical Examination HEENT: PERRLA Respiratory: no wheezing, no rales, no rhonchi, clear to auscultation bilateral Cardiovascular: irregular Gastrointestinal: soft, non-tender, positive bowel sounds Musculoskeletal: no edema Dx/Plan (1) Acute cerebrovascular accident (CVA) Code(s): I63.9 - CEREBRAL INFARCTION, UNSPECIFIED Status: Acute (2) Atrial fibrillation Code(s): I48.91 - UNSPECIFIED ATRIAL FIBRILLATION Status: Chronic (3) HTN (hypertension) Code(s): I10 - ESSENTIAL (PRIMARY) HYPERTENSION Status: Chronic - Plan * Acute MCA CVA. with Hemorrhagic transformation * HTN- blood pressure is stable * AFIB-- heart rate is stable * CT scan results are noted, await Neurology input as to if she can start aspirin now.
[2017-02-22 13:52] VITALS: BMI 20.2
[2017-02-22 15:28] VITALS: BP 142/71
--- NOTE | 2017-02-22 18:39 | DIS ---
DATE OF ADMISSION: 02/14/2017 DATE OF DISCHARGE: 02/22/2017 PRIMARY CARE PHYSICIAN: Jem Davis M.D. DISCHARGE DISPOSITION: To inpatient rehabilitation. DISCHARGE DIAGNOSES: 1. Large right middle cerebral artery distribution cerebrovascular accident. 2. Hypertension. 3. Chronic atrial fibrillation. DISCHARGE MEDICATIONS: Include aspirin 81 mg daily, amlodipine 5 mg daily, Benicar 20 mg daily, met oprolol succinate XL 50 mg daily, levothyroxine 50 mcg daily, hydrochlorothiazide 12.5 mg daily. Th e patient is allergic to CRESTOR and therefore is not being discharged on a statin. PROCEDURES DONE DURING ADMISSION: The patient had a CT scan of the brain which demonstrated a large right MCA distribution infarct. The patient had an MRI of the brain showing again large acute righ t MCA distribution infarct with some areas of hemorrhagic transformation. There was some effect on the right cerebral hemisphere as well as some slight midline shift. The patient had bilateral carot id Dopplers showing no hemodynamically significant stenosis. The patient had an echocardiogram [facility] the ejection fraction was within the normal range at approximately 60-65%. There was some prob able diastolic dysfunction, it was noted that the patient was in atrial fibrillation. The patient a lso had a CT scan of the brain showing temporal involutional changes with the large right middle cer ebral artery distribution infarct, the hemorrhagic transformation and was again noted and stable. CODE STATUS: DNR. ALLERGIES: CRESTOR. HOSPITAL COURSE: Ms. Velasquez is a very pleasant 86-year-old female who was admitted to the emergency room after noticing left-sided weakness as well as some dysphagia. She was found to have a large ri ght MCA CVA. She was admitted and seen by Neurology. It felt that the stroke was as a result of e atrial fibrillation as the patient had recently been taken off of Eliquis in order to perform a de ntal procedure and unfortunately suffered the stroke in the period that she was off of the Eliquis w [facility] was for just a very short time. During the course of her hospital stay, her speech improved an d she did improve with some of the strength on the left side. Repeat CT scan prior to discharge dem onstrated stable findings and therefore low dose aspirin was restarted; however, she will not be sta rted back on Eliquis at this time due to large nature of the stroke and the hemorrhagic transformati on. She is also not being placed on a statin due to her allergy to CRESTOR. She is being transferr ed to inpatient rehabilitation.
== END 2017-02-22 15:03 | DRG 64 ==
LOC: ERS 18:15 → IMCU/EMU 22:26 → 2SE 02-16 14:08
PROVIDERS: ADMIT Internal Medicine; ATTEND Internal Medicine
DX: I63.311 Cerebral infarction due to thrombosis of right middle cerebral artery (principal); G93.6 Cerebral edema; G81.94 Hemiplegia, unspecified affecting left nondominant side; R47.01 Aphasia; I48.2 Chronic atrial fibrillation; I10 Essential (primary) hypertension; I08.3 Combined rheumatic disorders of mitral, aortic and tricuspid valves; E03.9 Hypothyroidism, unspecified; Z88.8 Allergy status to other drugs, medicaments and biological substances; Z79.01 Long term (current) use of anticoagulants; Z79.82 Long term (current) use of aspirin; Z51.5 Encounter for palliative care; K59.00 Constipation, unspecified; Z66 Do not resuscitate
CPT/HCPCS: 36415; 36416; 70450; 70551; 80053; 80061; 81001; 82553; 82805; 84484; 85025; 87086; 93005; 93306; 93880; 96360; A4216; G8981-GP-CM; G8982-GP-CJ; G8987-GO-CM; G8988-GO-CK; G8996-GN-CJ; G8997-GN-CI; J0360

== ENCOUNTER 2017-06-23 10:49 | Outpatient (CLI) | payer MEDICARE, BC | END 2017-06-23 10:50 | disposition home or self-care (01) | LOC: BICCT 10:49 | PROVIDERS: ATTEND Psychiatry & Neurology Neurology | DX: I63.511 Cerebral infarction due to unspecified occlusion or stenosis of right middle cerebral artery (principal); G93.89 Other specified disorders of brain; I70.90 Unspecified atherosclerosis | CPT/HCPCS: 70450 ==

== ENCOUNTER 2017-09-14 07:40 | Observation (INO) | payer MEDICARE, BC ==
[2017-09-14 08:28] LABS: #Eosinphils 0.2 thou/uL (0.0-0.7); #Lymphocytes 0.8 thou/uL (1.20-3.40); #Monocytes 0.7 thou/uL (0.11-0.59); #Neutrophils 10.2 thou/uL (1.40-6.50); %Basophils 0.3 % (0.0-1.0); %Eosinophils 1.6 % (0.0-10.0); %Lymphocytes 6.9 % (21.0-51.0); %Neutrophils 85.2 % (42.0-75.0); Hemoglobin 13.7 g/dL (12.0-16.0); Mean Corpuscular HGB CONC 32.9 g/dL (32.0-36.0); Mean Corpuscular Volume 94.2 fl (81.0-99.0); Platelet Count 139 thou/uL (130-400); RBC Distribution Width 11.8 % (11.5-14.5); Red Blood Cell (RBC) Count 4.43 mill/uL (4.20-5.40)
[2017-09-14 08:38] LABS: ALT (SGPT) 12 U/L (8-55); AST (SGOT) 15 U/L (5-34); Albumin 3.9 g/dL (3.4-4.8); Alkaline Phosphatase 65 U/L (40-150); Anion Gap 12 mmol/L (10-20); BUN (Urea Nitrogen) 31 mg/dL (9.8-20.1); Calc. Creatinine Clearance 0 mL/min (70-130); Calcium 9.5 mg/dL (7.8-10.44); Carbon Dioxide 26 mmol/L (23-31); Chloride 107 mmol/L (98-107); Estimated GFR-MDRD 47; Globulin 3.3 g/dL (2.4-3.5); Glucose 124 mg/dL (83-110); Potassium 4.1 mmol/L (3.5-5.1); Protein, Total 7.2 g/dL (6.0-8.3); Sodium 141 mmol/L (136-145)
[2017-09-14 08:38] LABS: INR-International Normal Ratio 1.1; PTT 25.8 SEC (22.9-36.1); Prothrombin Time 14.8 SEC (12.0-14.7)
[2017-09-14 08:42] LABS: CKMB 1.9 ng/mL (0-6.6); Troponin I 0.029 ng/mL (< 0.028)
--- NOTE | 2017-09-14 08:49 | CT ---
CT BRAIN WITHOUT CONTRAST: Comparison: 02-22-17 History: Stroke alert. Left sided weakness. Last seen normal at 7:10. Technique: Multiple contiguous axial images were obtained in a CT of the brain without contrast. Caterina nal reformats were performed. FINDINGS: There is a large area of encephalomalacia in the right inferior distribution from prior infarction. S cattered hypodensities in the subcortical and periventricular white matter are likely secondary to sm all vessel ischemic disease. Intracranial vascular calcifications are seen. No new large confluent in farction is seen. There is no evidence of hydrocephalus, intracranial hemorrhage, or extraaxial fluid collection. The calvarium and overlying soft tissues are unremarkable. The visualized paranasal sinuses and masto id air cells are well aerated. IMPRESSION: 1. No evidence of acute intracranial abnormality. 2. Remote right inferior distribution infarction. 3. Dr. Crawley notified of the findings at 7:54 a.m. on 09-14-17. POS: [facility]
--- NOTE | 2017-09-14 09:36 | RAD ---
SINGLE VIEW OF THE CHEST: Comparison: None. History: Seizure. FINDINGS: Single view of the chest shows an enlarged cardiomediastinal silhouette with atherosclerotic calcific ations in the aorta. Increased interstitial markings are present. There is no evidence of consolidati on, mass, pleural effusion. Degenerative changes are seen in the spine. IMPRESSION: 1. Cardiomegaly. 2. Atherosclerotic disease. POS: [facility]
[2017-09-14 09:59] LABS: Bilirubin Negative (Negative); Blood, Urine Negative (Negative); Clarity CLOUDY (Clear); Glucose, Urine (Dipstick) Negative (Negative); Leukocyte Trace (Negative); Nitrite Negative (Negative); Protein, Urine (Dipstick) 100 mg/dL (Neg-Trace); Specific Gravity, Urine 1.019 (1.002-1.036); pH, Urine 5.5 (5.0-9.0)
[2017-09-14] MEDS ORDERED: levETIRAcetam In NaCl (Iso-Os) 1,000 MG in Premix Bag 1 BAG IVPB SCH (10:00)
[2017-09-14 10:01] LABS: Bacteria/HPF 2+ HPF (None Seen); Hyaline Casts/LPF 0-3 HYALINE CAST LPF (0-3 Hyaline); RBC/HPF None Seen HPF (0-3); Squamous Epithelial 0-3 HPF (0-3); Yeast-AUWi Flag 4.7 (0-25.0)
[2017-09-14] MEDS ORDERED: Acetaminophen 650 MG Suppository ONE (10:10)
[2017-09-14 10:17] LABS: Crystals/HPF 2+ AMORPH URATES HPF (Negative); Transitional Epithelial 0-3 HPF (0-3)
[2017-09-14 10:18] LABS: Renal Epithelial None Seen HPF (0-3)
[2017-09-14] MEDS ORDERED: cefTRIAXone\\ROCEPHIN 1 GM VIAL ONE (10:31)
[2017-09-14] MEDS ORDERED: Milk Of Magnesia 30 ML UDCUP PO PRN (10:43)
[2017-09-14] MEDS ORDERED: Mag-Al 1200 mg/1200 mg/30 ML UDCUP PO PRN (10:43)
[2017-09-14] MEDS ORDERED: Ondansetron ODT 4 MG TAB PO PRN (10:43)
[2017-09-14] MEDS ORDERED: Senokot 8.6 MG TAB PO PRN (10:43)
[2017-09-14] MEDS ORDERED: Ondansetron HCl/PF 4 MG/2 ML Vial IVP PRN (10:43)
[2017-09-14] MEDS ORDERED: Lorazepam 2 MG/ML VIAL SLOW IVP PRN (10:43)
[2017-09-14] MEDS ORDERED: Loperamide HCl 2 MG CAP PO PRN (10:43)
[2017-09-14] MEDS ORDERED: Acetaminophen 325 MG TAB PO PRN (10:43)
[2017-09-14 12:40] LABS: Lactic Acid 1.4 mmol/L (0.5-2.2)
[2017-09-14 12:50] LABS: Troponin I 0.069 ng/mL (< 0.028)
[2017-09-14] MEDS: Sodium Chloride 0.9% 1,000 ML IV SCH (12:56)
--- NOTE | 2017-09-14 13:09 | HP ---
PRIMARY CARE PHYSICIAN: Jem Davis M.D. REASON FOR ADMISSION: Witnessed seizure at long-term. HISTORY OF PRESENT ILLNESS: An 87-year-old female who lives at [facility]. The patient had a massive stroke last year in January 2017. At that time, the patient was having large acute ri ght MCA distribution infarction with hemorrhagic conversion. After that admission, the patient was d ischarged to long-term. The patient was doing well up until today. Today, patient had witnessed seizure. The patient had generalized tonic clonic activity for about 2 minutes and subsequently mirian ent was in postictal phase and returned back to baseline status. The patient was transferred to the emergency room. The patient did not have any previous seizure in the past. The patient did not have any trauma. She did not have any new motor weakness. She did not have any fever or chills. Patient is not able to provide any history because of her level of cognitive status from previous str betsye. ALLERGIES: CRESTOR. CURRENT HOME MEDICATIONS: Tylenol 500 mg q.6 h. p.r.n., aspirin 81 mg daily, levothyroxine 50 mcg p. o. daily, Milk of Magnesia as needed, MiraLax 17 grams daily, Mirapex 0.125 mg daily, Benicar 10 mg d aily, and Zoloft 25 mg p.o. daily. REVIEW OF SYSTEMS: All review of systems tried to review with the patient, but unable to review at t his point because of level of cognitive status from previous stroke. 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 PAST SURGICAL HISTORY: Hysterectomy. PAST PSYCHIATRIC HISTORY: Anxiety and depression. SOCIAL HISTORY: Patient lives at [facility]. No history of tobacco, alcohol or illicit drug abuse. FAMILY HISTORY: No strong family history of premature coronary artery disease, stroke or cancer. EMERGENCY ROOM COURSE: Patient is given Keppra 1 gram Tylenol 650 mg and Rocephin 1 gram. PHYSICAL EXAMINATION: VITAL SIGNS: On arrival, blood pressure 162/104, pulse 93, respiratory rate 22, temperature 100.2 re ctally, saturation 96% on room air, weight 52.9 kilograms. GENERAL: Patient is currently awake, arousable, but does not follow any command. She moves on the r ight side. She does have left-sided weakness. HEENT: Head, normocephalic, atraumatic. Eyes: Pupils round, reactive to light. ENT: Dry appearin g mucous membrane, no oral lesion, no pharyngeal erythema, no exudate. NECK: Supple, no JVD, no thyromegaly, no carotid bruit. LUNGS: Clear to auscultation without any rhonchi or rales. CARDIAC: S1, S2 appears irregular. Soft parasternal murmur noted, no gallop, no rub. ABDOMEN: Soft, bowel sounds present, nontender, nondistended. No organomegaly, no mass, no suprapub ic discomfort noted. BACK: Unremarkable, no CVA tenderness. EXTREMITIES: Upper extremity passive movement of all joints are normal. Lower extremity, patient do es have residual left-sided weakness, right-sided she is moving. NEUROLOGIC: The patient is awake, though does not follow to verbal command. Neurological examinatio n is limited because of patient's condition. The patient is up to her baseline level. She does have residual weakness on the left side. SKIN: No skin rash. HEMATOLOGICAL SYSTEM: No lymphadenopathy. SIGNIFICANT LABORATORY DATA: EKG showing atrial fibrillation with controlled ventricular response, L VH, nonspecific ST-T changes. CT brain reported and reviewed by me showing no evidence of acute intr acranial process, remote right inferior distribution infarction. Chest x-ray based on my review, car diomegaly, chronic atherosclerosis but no acute process. CBC: WBC 12.0, hemoglobin 13.7, platelet of 139. INR 1.1. BMP: Sodium 141, potassium 4.1, chlorid e 107, carbon dioxide 26, anion gap 12, BUN 31, creatinine 1.11, glucose 124, calcium 9.5. LFT: AST 15, ALT 12, alkaline phosphatase 65, albumin 3.9, CK-MB 1.9, troponin I 0.029, lactic acid 2.3, magn esium 2.1, prolactin 10.61. Urinalysis suggestive of urinary tract infection. ASSESSMENT AND PLAN: 1. 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 The patient had generalized tonic clonic seizure activity which was witnessed at long-term. The patient was in postictal phas e and now she is up to her baseline level. The patient is given Keppra 1 gram in the emergency room. We will continue Keppra 1 gram IV twice daily. Neurology will be consulted. We will obtain EEG. We checked a prolactin level, TSH and magnesium level and that are normal. 2. Urinary tract infection. We will start Rocephin 1 gram q.24 hours. Upon discharge, we will cons ider changing to Cipro. Follow up on urine culture result. 3. Elevated troponin, likely due to demand ischemia. We will do serial cardiac enzymes x3 to see th e trend of troponin. We will continue aspirin 81 mg p.o. daily, Toprol-XL 50 mg p.o. b.i.d., metopro lol 25 mg p.o. b.i.d. 4. Hypertension. We will continue amlodipine 5 mg p.o. daily and metoprolol 25 mg p.o. b.i.d. 5. Hypothyroidism. We will continue Synthroid 50 mcg p.o. daily. 6. Dehydration. The patient will be given gentle IV fluid today. 7. History of stroke with residual weakness. PT, OT will be consulted as well as speech therapy liza l be consulted. 8. Deep venous thrombosis prophylaxis. Lovenox 40 mg subcu daily. 9. Gastrointestinal prophylaxis, Pepcid 20 mg p.o. b.i.d. 10. CODE STATUS: The patient is DNR and confirmed DNR status. Patient's son is surrogate decision maker. Disposition plan based on clinical course. We are suspecting patient's stay in hospital 24 hours. I f there is no further seizure, then we will consider discharging her back to long-term tomorrow. Plan of care discussed with the family member as well.
[2017-09-14 13:29] VITALS: BMI 18.8
[2017-09-14] MEDS ORDERED: Famotidine 20 MG TAB PO SCH ×2 (21:00)
--- NOTE | 2017-09-14 22:24 | CON ---
DATE OF CONSULTATION: 09/14/2017 CONSULTING PHYSICIAN: Hospitalist Service. IMPRESSION: 1. 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 2. Prior right middle cerebral artery stroke with left hemiparesis. PLAN: Add Keppra 250 mg twice a day. Ms. Velasquez is an 87-year-old white female with a past history of major stroke that occurred in January of last year. She is left with a left hemiparesis. She is currently a prison resident. She apparently was found unconscious. There was some suggestion evidence that she had a seizure based on what is in her chart. She denies having any other episodes where she has lost awareness. She has a history of atrial fibrillation as well as hypertension and hypothyroidism. PAST MEDICAL HISTORY: Otherwise, negative. ALLERGIES: STATINS. SOCIAL HISTORY: No tobacco or alcohol use. FAMILY HISTORY: Noncontributory. REVIEW OF SYSTEMS: Positive for occasional headaches, but no nausea, vomiting, chest pain or shortne ss of breath. PHYSICAL EXAMINATION: GENERAL: She is a frail-appearing elderly lady, lying in bed, in no distress. VITAL SIGNS: Have been stable. She is afebrile. HEENT: Pupils equal and reactive. Conjunctivae clear. Oropharynx clear. EXTREMITIES: No cyanosis or edema. NEUROLOGIC: She was alert and cooperative. Her speech is fluent and clear. Cranial nerve exam show ed some subtle droop on the left side. Motor exam showed dense left hemiparesis. Her right side, sh e has some limited use of the right arm. She had good strength in the right leg. No abnormal moveme nts were seen. Sensation was intact to light touch. She was loaded with a gram of Keppra in the emergency room. SUMMARY: This is an 87-year-old woman with a large area of infarct involving the right MCA territory , which looks unchanged if not actually better than prior imaging. She has no new focal symptoms to suggest a new stroke. I suspect this was primarily a seizure. I agree with continuing Keppra but gi kyle her frail size, I would start with a low dose of 250 twice a day.
[2017-09-14] MEDS ORDERED: levETIRAcetam 500 mg/5 ml Oral Solution PO SCH (22:45)
[2017-09-15] MEDS: Sodium Chloride 0.9% 1,000 ML IV SCH (00:03)
[2017-09-15 05:15] LABS: #Basophils 0.1 thou/uL (0.0-0.2); #Eosinphils 0.2 thou/uL (0.0-0.7); #Lymphocytes 0.9 thou/uL (1.20-3.40); #Monocytes 0.9 thou/uL (0.11-0.59); #Neutrophils 4.4 thou/uL (1.40-6.50); %Basophils 0.9 % (0.0-1.0); %Eosinophils 3.4 % (0.0-10.0); %Lymphocytes 14.3 % (21.0-51.0); %Monocytes 13.5 % (0.0-10.0); %Neutrophils 67.9 % (42.0-75.0); Hemoglobin 12.1 g/dL (12.0-16.0); Mean Corpuscular HGB CONC 32.6 g/dL (32.0-36.0); Mean Corpuscular Hemoglobin 30.8 pg (27.0-31.0); Mean Corpuscular Volume 94.3 fl (81.0-99.0); Mean Platelet Volume 8.1 fL (7.4-10.4); Platelet Count 125 thou/uL (130-400); RBC Distribution Width 11.7 % (11.5-14.5); Red Blood Cell (RBC) Count 3.95 mill/uL (4.20-5.40); White Blood Cell (WBC) Count 6.4 thou/uL (4.8-10.8)
[2017-09-15 05:25] LABS: Anion Gap 8 mmol/L (10-20); BUN (Urea Nitrogen) 30 mg/dL (9.8-20.1); Calc. Creatinine Clearance 30 mL/min (70-130); Calcium 9.4 mg/dL (7.8-10.44); Carbon Dioxide 26 mmol/L (23-31); Chloride 111 mmol/L (98-107); Estimated GFR-MDRD 47; Glucose 82 mg/dL (83-110); Potassium 3.7 mmol/L (3.5-5.1); Sodium 141 mmol/L (136-145)
[2017-09-15] MEDS ORDERED: Olmesartan 5 MG TAB PO SCH (09:00)
[2017-09-15] MEDS ORDERED: Enoxaparin Sodium 40 MG/0.4 ML SYRINGE SC SCH (09:00)
[2017-09-15] MEDS ORDERED: Polyethylene Glycol 3350 17 GM Packet PO SCH (09:00)
[2017-09-15] MEDS ORDERED: Enoxaparin Sodium 30 MG/0.3 ML SYRINGE SC SCH (09:00)
[2017-09-15] MEDS ORDERED: levETIRAcetam 500 mg/5 ml Oral Solution PO SCH (09:00)
[2017-09-15] MEDS ORDERED: cefTRIAXone\\ROCEPHIN 1 GM in Sodium Chloride 0.9% 100 ML IVPB SCH (10:00)
--- NOTE | 2017-09-15 10:09 | DIS ---
DATE OF ADMISSION: 09/14/2017 DATE OF DISCHARGE: 09/15/2017 PRIMARY CARE PHYSICIAN: Dr. Jem Davis. DISCHARGE DISPOSITION: jail. PRIMARY DISCHARGE DIAGNOSES: Urinary tract infection, seizure as a late effect of cerebrovascular ac cident. SECONDARY DISCHARGE DIAGNOSES: Restless legs syndrome, physical deconditioning, hypothyroidism, hype rtension, history of cerebrovascular accident with left-sided hemiplegia, chronic atrial fibrillation , anxiety, depression, moderate protein calorie malnutrition. PRIMARY PROCEDURE/OPERATION: None. RADIOLOGICAL INVESTIGATION: CT brain showed old stroke. Chest x-ray normal. SIGNIFICANT LABORATORY DATA: WBC 6.4, hemoglobin 12.1, and platelet 125. INR 1.1. Sodium 141, crea tinine 1.11, calcium 9.4, troponin 0.080, TSH 2.16, prolactin 12. Urinalysis suggestive of UTI. Uri ne culture grew Streptococcus. DISCHARGE MEDICATIONS: Cipro 250 mg p.o. b.i.d. for 5 days, aspirin 81 mg p.o. daily, Pepcid 20 mg p .o. daily, Keppra 250 mg p.o. b.i.d., Synthroid 50 mcg p.o. daily, Benicar 10 mg p.o. daily, MiraLax 17 grams p.o. daily, Mirapex 0.125 mg at bedtime, Zoloft 25 mg p.o. daily. PRIMARY PROCEDURE/OPERATION: None. CONTRAINDICATIONS: None. CODE STATUS: DNR. INPATIENT ELECTRONIC PAGE MAKEUP SYSTEM OPERATOR: Dr. Juan Pablo Montague neurologist was consulted while in hospital. ALLERGIES: CRESTOR. DISCHARGE PLAN: Post hospital, patient is discharged back to senior care. Over there, patient's [facility] care physician will follow up with the patient. HOSPITAL COURSE: An 87-year-old female who has a major stroke in 01/2017. Since then she has residu al left-sided weakness. The patient had witnessed generalized tonic clonic seizure and subsequently postictal phase. Subsequently, patient was brought to emergency room for evaluation. In the emergen cy room, CT brain showed old stroke. Chest x-ray was normal. She was found with urinary tract infec tion. She was given Rocephin while in hospital. On discharge, we prescribed Cipro for another 5 day s. In the emergency room, she was loaded with Keppra and Neurology recommended Keppra 250 mg p.o. b. i.d. She had elevated troponin which was related with demand ischemia. The patient is medically stable for discharge today. The patient is seen and examined at bedside today. PHYSICAL EXAMINATION: VITAL SIGNS: Currently, temperature 97.3, pulse 55, respiratory rate 16, saturation 95% on room air, and blood pressure 109/56. GENERAL: The patient is currently alert, awake, no obvious acute distress. HEAD: Normocephalic, atraumatic. EYES: Pupils round, reactive to light. Extraocular muscle intact. ENT: Oropharynx within normal limits. Moist mucous membranes. NECK: Supple, no JVD, no thyromegaly, no carotid bruit. LUNGS: Clear. CARDIAC: S1 and S2 regular. No murmur. ABDOMEN: Soft, benign. EXTREMITIES: No edema. NEUROLOGIC: The patient does have residual weakness on the left side. Paperwork for discharge done. Discharge medication reconciliation done. The patient is medically st able for discharge today.
[2017-09-15 12:16] VITALS: TEMP 97.5
[2017-09-15 13:41] VITALS: BP 127/69
[2017-09-15] MEDS ORDERED: Pramipexole Di-HCl 0.125 MG TAB PO SCH (21:00)
[2017-09-16] MEDS ORDERED: Levothyroxine Sodium 50 MCG TAB PO SCH (06:00)
== END 2017-09-15 13:40 ==
LOC: ERS 07:40 → ERHOLD 10:01 → 2SW 13:14
PROVIDERS: ADMIT Internal Medicine; ATTEND Internal Medicine
DX: N39.0 Urinary tract infection, site not specified (principal); G40.309 Generalized idiopathic epilepsy and epileptic syndromes, not intractable, without status epilepticus; I69.354 Hemiplegia and hemiparesis following cerebral infarction affecting left non-dominant side; I10 Essential (primary) hypertension; E03.9 Hypothyroidism, unspecified; F41.9 Anxiety disorder, unspecified; F32.9 Major depressive disorder, single episode, unspecified; E86.0 Dehydration; G25.81 Restless legs syndrome; I48.2 Chronic atrial fibrillation; E44.0 Moderate protein-calorie malnutrition; Z68.1 Body mass index [BMI] 19.9 or less, adult; Z88.8 Allergy status to other drugs, medicaments and biological substances; Z79.899 Other long term (current) drug therapy; Z79.82 Long term (current) use of aspirin; Z66 Do not resuscitate
CPT/HCPCS: 51701; 70450; 71045; 80048; 82553; 82962; 83605; 83735; 84146; 84484 ×2; 85025; 85610; 85730; 87077; 87086; 93005 ×2; 95816; 95819; 96361 ×2; 96365; 96367; 96372; 97139 ×3; 97530; 99285; G0378; G8987; G8988; G8989; 36415; 36416; 80053; 81003; 81015; 84443; A4216; A4353; G8996-GN-CJ; G8997-GN-CI; J0696; J1650; J1953